=== PATIENT | female | born 1930 | race Two or more races ===

== ENCOUNTER 2018-05-12 15:15 | Outpatient (CLI) | payer OTHER ==
[~2018-05-12 15:15] MED LIST: DEPO-MEDRO40 MG/1 ML IJ; DICLOFENAC POTA50 MG PO
== END 2018-05-12 15:19 | disposition home or self-care (01) ==
LOC: RAD 15:15
DX: M43.16 Spondylolisthesis, lumbar region (principal)

== ENCOUNTER 2019-09-03 15:30 | Outpatient (CLI) | payer OTHER | END 2019-09-03 15:33 | disposition home or self-care (01) | LOC: RAD 15:30 | PROVIDERS: ATTEND Internal Medicine Rheumatology | DX: M19.042 Primary osteoarthritis, left hand (principal); M19.041 Primary osteoarthritis, right hand; M11.231 Other chondrocalcinosis, right wrist ==

== ENCOUNTER 2019-11-04 10:34 | Outpatient (CLI) | payer OTHER | END 2019-11-04 10:48 | disposition home or self-care (01) | LOC: RAD 10:34 | PROVIDERS: ATTEND Internal Medicine Gastroenterology | DX: R05 Cough (principal); R10.13 Epigastric pain; M16.0 Bilateral primary osteoarthritis of hip ==

== ENCOUNTER 2022-01-11 13:05 | Outpatient (CLI) | payer OTHER | END 2022-01-11 13:12 | disposition home or self-care (01) | LOC: RAD 13:05 | PROVIDERS: ATTEND Specialist | DX: R05.9 Cough, unspecified (principal) ==